=== PATIENT | female | born 1990 | race Caucasian/White ===

== ENCOUNTER 2016-04-14 10:07 | Emergency (ER) | payer BC ==
[2016-04-14] MEDS ORDERED: Ibuprofen TAB* 600 MG PO ONE (11:23)
--- NOTE | 2016-04-14 11:28 | UC ---
Knee Pain HPI - HPI Summary HPI Summary: patient was playing soccer, planted right foot, heard a "pop" and knee gave out. - History of Current Complaint Chief Complaint: UCLowerExtremity Stated Complaint: RIGHT KNEE INJURY Time Seen by Provider: 04/14/16 11:18 Hx Obtained From: Patient ?: No Onset/Duration: Sudden Onset, Lasting Days - 1 Severity Initially: Severe Severity Currently: Moderate Character: Dull, Stiffness Aggravating Factor(s): Movement, Weight Bearing, Prolonged Standing, Stairs Alleviating Factor(s): Rest Associated Signs And Symptoms: Positive: Swelling, Weakness Able to Bear Weight: Yes - Risk Factors Septic Arthritis Risk Factor: Negative Gout Risk Factor: Negative - Allergies/Home Medications Allergies/Adverse Reactions: Allergies Allergy/AdvReac Type Severity Reaction Status Date / Time No Known Allergies Allergy Verified 04/14/16 11:15 Home Medications: Home Medications Ibuprofen [Ibuprofen 200 MG] 800 mg PO PRN 04/14/16 [History] PMH/Surg Hx/FS Hx/Imm Hx Previously Healthy: Yes - Surgical History Surgical History: None - Family History Known Family History: Negative: Cardiac Disease, Hypertension - Social History Alcohol Use: Occasionally Substance Use Type: None Smoking Status (MU): Never Smoked Tobacco Review of Systems Constitutional: Negative Skin: Negative Eyes: Negative ENT: Negative Respiratory: Negative Cardiovascular: Negative Gastrointestinal: Negative Genitourinary: Negative Motor: Negative Neurovascular: Negative Musculoskeletal: Arthralgia, Decreased ROM - right knee, Edema, Myalgia Neurological: Negative Psychological: Negative All Other Systems Reviewed And Are Negative: Yes Physical Exam Triage Information Reviewed: Yes Appearance: Well-Appearing, Well-Nourished, Pain Distress Vital Signs: Initial Vital Signs Temp 99.5 F 04/14/16 11:09 Pulse 79 04/14/16 11:09 Resp 14 04/14/16 11:09 BP 120/74 04/14/16 11:09 Pulse Ox 100 04/14/16 11:09 Vital Signs Reviewed: Yes Eye Exam: Normal Eyes: Positive: Conjunctiva Clear ENT Exam: Normal ENT: Positive: Normal ENT inspection, Hearing grossly normal, Pharynx normal, TMs normal Dental Exam: Normal Neck exam: Normal Neck: Positive: Supple, Nontender, No Lymphadenopathy Respiratory Exam: Normal Respiratory: Positive: Chest non-tender, Lungs clear, Normal breath sounds Cardiovascular Exam: Normal Cardiovascular: Positive: RRR, No Murmur, Pulses Normal Abdominal Exam: Normal Abdomen Description: Positive: Nontender, No Organomegaly, Soft, Guarding Bowel Sounds: Positive: Present Musculoskeletal: Positive: Strength Limited @ - in right leg, knee feels weak, ROM Limited @ - flx and ext due to pain and swelling, Edema @ - edema is above the knee, in the quadricep, neg ericka, Neurological Exam: Normal Neurological: Positive: Alert, Muscle Tone Normal Psychological Exam: Normal Skin Exam: Normal - no bruising noted Knee Pain Course/Dx - Course Course Of Treatment: hx obtained, exam performed, knee xray, ibuprofen given. knee immobilizer juan wrap and crutches supplied, referred to ortho for follow up - Differential Dx/Diagnosis Differential Diagnosis/HQI/PQRI: Bursitis, Contusion, Dislocation, Fracture ( Closed), Patellofemoral Syndrome, Sprain, Strain Provider Diagnoses: knee effusion. decreased ROM. muscle strain of right quadricep Discharge - Discharge Plan Condition: Stable Disposition: HOME Patient Education Materials: Swollen Knee Joint (ED) Referrals: Frandy De MD [Primary Care Provider] - Bert Harp MD [Medical Doctor] - Additional Instructions: Your xray shows swelling inside the joint. Wear the immobilizer and use the juan wrap to reduce swelling, elevate at rest and ice as tolerated for the next 48 hours, then heat. Work through pain free range of motion a few times a day. I recommend follow up with an orthopedic for further evaluation and treatment. Use the crutches to aid in ambulation.
[2016-04-14 11:46] VITALS: BP 120/74
--- NOTE | 2016-04-14 11:52 | RAD ---
INDICATION: Right knee injury. TECHNIQUE: 4 views of the right knee were obtained. FINDINGS: The bones are normal alignment. There is a moderate joint effusion present. No fracture is seen. Joint spaces appear maintained. IMPRESSION: JOINT EFFUSION, NO FRACTURE IS SEEN.
== END 2016-04-14 12:24 | disposition home or self-care (01) ==
LOC: EDSEX → MERGE 10:07 → UCCORT 10:07
DX: S76.111A Strain of right quadriceps muscle, fascia and tendon, initial encounter (principal); X58.XXXA Exposure to other specified factors, initial encounter; Y93.66 Activity, soccer; Y92.9 Unspecified place or not applicable; M25.461 Effusion, right knee
CPT/HCPCS: 99203; A9270-GY; G0463

== ENCOUNTER 2016-05-26 06:34 | Day surgery (SDC) | payer BC ==
--- NOTE | 2016-05-07 09:33 | HP ---
PREOPERATIVE HISTORY AND PHYSICAL: DATE OF SURGERY: 05/26/16 [facility] PROCEDURE: Right knee arthroscopic anterior cruciate ligament reconstruction. CHIEF COMPLAINT: Right knee pain. HISTORY OF PRESENT ILLNESS: Mohit is a 25-year-old male who presents to the clinic. He was referred by Dr. Harp for right knee pain and instability. He states he was playing soccer 3 weeks ago when he was planted on the right knee and another player ran into him, he felt immediate pop and pain and swelling into his knee. He now has pain in the anterior aspect of his knee that is worse with walking and with stairs. He has minimal pain at rest. He rates his pain as a 2/10. He also reports instability of the knee. He denies locking or catching. He is taking ibuprofen as needed for the pain. He reports no prior injury to the knee. Dr. Harp ordered an MRI that revealed an ACL tear. He denies numbness and tingling. The patient has failed conservative measures and has therefore agreed to undergo a right knee arthroscopic anterior cruciate ligament reconstruction with Dr. Ervin on 05/26/16. PAST MEDICAL HISTORY: None. PAST SURGICAL HISTORY: None. MEDICATIONS: Ibuprofen 600 mg by mouth every 8 hours as needed for pain. ALLERGIES: No known drug allergies. FAMILY HISTORY: He denies pertinent family history. SOCIAL HISTORY: He lives with his parents. 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 He denies tobacco use. He reports occasional alcohol consumption. REVIEW OF SYSTEMS: A 14-point review of systems was reviewed with the patient and found to be positive for the current complaint, otherwise negative. He denies chest pain, shortness of breath, history of bleeding disorder, history of DVT or PE. PHYSICAL EXAMINATION GENERAL: Well-developed, well-nourished 25-year-old male in no acute distress. Alert and oriented x3. Appropriate mood and affect. VITALS: Height 69.75, weight 157. Pulse 60, blood pressure 124/86, respiratory rate 15. BMI 22.7. HEENT: Normocephalic, atraumatic. PERRLA. Throat clear. NECK: Supple. PULMONARY: Lungs clear to auscultation bilaterally. No wheezing, rhonchi, or rales. CARDIO: Regular rate and rhythm. S1, S2. No murmurs, gallops, or rubs. No edema. ABDOMEN: Positive bowel sounds. Soft, nontender. MUSCULOSKELETAL: Right lower extremity, antalgic gait favoring the right side. Mild varus deformity of the bilateral legs. Moderate effusion of the knee, nontender to palpation. 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 Range of motion from 1 to 100 degrees. Stable MCL and LCL. +2A Sai. Calves soft, nontender. +2 dorsalis pedis pulse. Sensation intact to light touch distally. Left lower extremity, skin is intact. No effusion. Range of motion from 0 to 130 degrees. Venice-Schlatter deformity of the tibial tubercle. Stable MCL and LCL. Stable Sai. Negative posterior drawer. Calves soft, nontender. +2 dorsalis pedis pulse. Sensation intact to light touch distally. NEURO: Alert and oriented x3. Cranial nerves grossly intact. Sensation intact to light touch. DIAGNOSTIC STUDIES/LAB DATA: MRI of the right knee revealed evidence of an ACL tear with a bone bruising pattern consistent with the tear. IMPRESSION: Right knee ACL tear. PLAN: Nonoperative versus operative treatment and graft options were discussed thoroughly with the patient. He understands he has an increased risk of arthritis due to his ACL tear. He also understands the risk of surgery and that was explained to the patient the risk of surgery to include numbness, injury to blood vessels, nerves and surrounding structure, arthritis, graft failure, need for future surgery, stiffness, risk of anesthesia, and risk of blood clot. The patient understands this and would like to undergo surgery. Before surgery, he should use NSAIDs, ice, some Motrin, and Jose Cruz wraps for pain. He is scheduled to undergo a right knee arthroscopic anterior cruciate ligament reconstruction with Dr. Ervin on 05/26/16 and he will return to the office 7 days postoperatively for followup and suture removal. Percocet will be used postoperatively for pain management. CHRIS KELLER [id number]/[facility] #: [id number] MTDD
[~2016-05-26 06:34] MED LIST: Buffered Lidocaine 1% SYRIN* 3 ML/SYR SYRINGE INTRADERM ONE; Dexamethasone IV* 4 MG/ML 1 ML (4 MG) IV SLOW PU ONE; Dexamethasone IV* 4 MG/ML 1 ML (4 MG) ONE; Famotidine IV* 10 MG/ML 2 ML (20 mg) IV ONE; Famotidine IV* 10 MG/ML 2 ML (20 mg) ONE
[2016-05-26] MEDS ORDERED: ceFAZolin 2 GM PREMIX(*) 2 GM/50 ML BAG IVPB ONE (06:42)
[2016-05-26] MEDS ORDERED: Bupivacaine 0.25% EPI 200,000* 30 ML SDV ONE (06:52)
[2016-05-26] MEDS ORDERED: Bupivacaine 0.25% SDV* 30 ML ONE (06:52)
[2016-05-26] MEDS ORDERED: Scopolamine 1.5 mg* PATCH TRANSDERM PRN (07:26)
[2016-05-26] MEDS ORDERED: oxyCODONE/Acetamin 5/325 MG* TAB PO PRN (07:26)
[2016-05-26] MEDS ORDERED: DiMENhydriNATE IV* 50 MG/ML VIAL IV PUSH PRN (07:26)
[2016-05-26] MEDS ORDERED: fentaNYL* 50 MCG/ML 2 ML VIAL (100 MCG VIAL) IV PRN (07:26)
[2016-05-26] MEDS ORDERED: Ondansetron INJ* 2 MG/ML VIAL IV PRN (07:26)
[2016-05-26] MEDS ORDERED: HYDROmorphone* 1 MG/ML 1 ML SYR IV PRN (07:26)
[2016-05-26] MEDS ORDERED: fentaNYL* 50 MCG/ML 5 ML VIAL (250 MCG VIAL) ONE (07:30)
[2016-05-26] MEDS ORDERED: Midazolam* 1 MG/ML 5 ML VIAL (5 MG) ONE (07:30)
[2016-05-26] MEDS ORDERED: Ketorolac INJ* 30 MG/ML 1 ML VIAL ONE (07:31)
[2016-05-26] MEDS ORDERED: Ondansetron INJ* 2 MG/ML VIAL ONE (07:31)
[2016-05-26] MEDS ORDERED: Lidocaine 2% PF* 5 ML VIAL ONE (07:31)
[2016-05-26] MEDS ORDERED: Propofol* 10 MG/ML 20 ML BTL IV PUSH ONE (07:31)
[2016-05-26] MEDS ORDERED: Atracurium* 10 MG/ML 10 ML VIAL ONE (07:40)
[2016-05-26] MEDS ORDERED: Glycopyrrolate IV* 0.2 MG/ML 1 ML VIAL ONE (07:51)
[2016-05-26 11:21] VITALS: BP 118/72
--- NOTE | 2016-05-27 02:20 | OP ---
OPERATIVE REPORT: DATE OF OPERATION: 05/26/16 - EMMIE DATE OF : 89 SURGEON: Jp Ervin MD DATA MANAGEMENT MANAGER: CHRIS Hill An speech assistant was needed for the entirety of the case to help with positioning, retraction, was utilized throughout all portion of the case. ANESTHESIOLOGIST: Dr. Barron. ANESTHESIA: General. PRE-OP DIAGNOSIS: Right knee anterior cruciate ligament, grade 3 anterior cruciate ligament injury. POST-OP DIAGNOSIS: Right knee grade 3 anterior cruciate ligament injury with lateral meniscal tear as well as medial femoral condyle abrasion. OPERATIVE PROCEDURE: Right knee arthroscopy with ACL reconstruction using quad autograft and partial lateral meniscectomy. INDICATIONS: None. TOURNIQUET TIME: 33 minutes and 250 mmHg. COMPLICATIONS: None. ESTIMATED BLOOD LOSS: Less than 25. IMPLANTS USED: One 7 x 25 mm SoftSilk screw and one 10 x 25 mm Biocomposite screw. INDICATIONS: Mohit Villela is a 25-year-old male who was playing soccer about 6 weeks ago and he sustained injury to his knee. He was diagnosed with an ACL injury and has elected to proceed with operative management. The risks and benefits were reviewed and include but are not limited to bleeding, infection, damage to nerves, vessels, surrounding structures, wound not healing, persistent pain, need for further surgery, risk of arthritis, risk of retear, stiffness, persistent pain, incomplete relief of symptoms, risk of DVT, risk of anesthesia. He has elected to proceed. DESCRIPTION OF PROCEDURE: The patient was greeted in the preoperative area by the attending surgeon. Correct extremity was marked and consent was confirmed. The patient was brought back to the operating suite where he was placed in a supine position on the operating table. He then underwent general anesthesia and endotracheal intubation after which examination of the knee was done. He was found to have a range of motion from 1 to about 135 degrees, stable to varus and valgus stress at 0 and 30 degrees, 2B Sai, negative posterior drawer. No effusion. The lateral post was positioned, a small 10-pound bump was placed at the foot to allow for the foot to rest at 90 degrees. The right leg after a miniature surgical pause was intra-articularly injected with 0.25% Marcaine with epi 30 cc. The right leg was then prepped and draped in the usual sterile fashion beginning with chlorhexidine soap, scrub, and alcohol wipe and a final prep with ChloraPrep. After appropriate surgical pause indicating site, side, procedure, administration of antibiotics, a sterile tourniquet was placed on the thigh proximally. The limb was exsanguinated and the tourniquet inflated to 250 mmHg. After the tourniquet was inflated, a 10 blade was used to make an incision in line with the distal quad. Soft tissues were carefully dissected to expose the paratenon and the quad. This was carefully debrided using Metzenbaum scissors. Once the quad was exposed and centered 10 mm were then marked out and then the 10 blade was used to harvest the graft. Care was taken to harvest distally where the bone block was harvested in a routine fashion by using first electrocautery device to radha it out, then the sagittal saw blade for the cuts. The small drill hole was then used to drill two drills in the bone block. The bone block was harvested, the drill holes were drilled. The graft was then amputated proximally with approximately 7.5 mm versus 10 length. The bone block was found to be about 23 mm in length. The graft was then prepared in the back table by the attending surgeon. Meanwhile, the speech assistant was closing the quadriceps tendon with 0 Vicryl in interrupted fashion. The bone blocks were found to be size 9 x 23 mm and the soft tissue portion was about 10 mm in diameter. Whipstitches were placed through both ends of the graft as well. The graft was left on tension on the back table. The 11 blade was then used to make a anterolateral portal. The scope was positioned in the suprapatellar pouch. The undersurface of the patella was examined and found to have no evidence of chondral injury. The patella had grade 0 changes. The trochlea had grade 0 changes. The medial and lateral gutters were intact but had evidence of hemosiderin deposits. The medial compartment at the very edge of the medial femoral condyle had evidence of abrasion and erythema indicating a significant injury which is likely where the present bone bruise is, but no unstable flaps. The knee was scoped and then positioned in the notch. There was abundant fat pad present as well as a large tear of the ACL. The ACL appeared to have scarred back to the PCL. One small fiber was left intact. The anterior medial portal was then made under needle localization. The shaver was used to debride the fat pad and the soft tissue anteriorly. The scope was then positioned in the medial compartment. The medial compartment was examined. There were grade 0 to 1 changes. The medial meniscus was intact and probed. The knee was then placed in a [id number] position. Lateral compartment had grade 0 to 1 changes. Lateral tibial plateau had grade 0 changes. The lateral meniscus had evidence of tearing that involved the root. However, it appeared to have healed back but there was unstable flap. The biter and shaver were used to debride back the unstable flap but the remainder of the meniscus was preserved. There was a mild amount of fraying on the body of the meniscus too that was debrided back. Once the meniscectomy was completed, attention was directed to the notch. The knee was placed in 90 degrees. The biter, saw and the electrocautery device were then used. The notch was found to be somewhat narrow posteriorly. Therefore, a small notchplasty was done using the arthroscopic sangeeta. All excess bone and debris were removed. Once this was done, the awl was used to radha the possible position of the ACL. This was then checked by changing the portals in the medial lateral portal. After this was done, the tibial guide was then placed in the center of the tibia. A separate incision was then made for the tibial tunnel using a 15 blade. Soft tissues were carefully dissected to expose the bone. The guide was then placed appropriately and the guide pin was then drilled to the center of the footprint. Once the appropriate position was identified, this was then overdrilled with a size 10 mm full bore reamer. The excess bone was collected for bone graft for the patellar defect. The tunnel was then rasped and prepared. Images were taken to ensure that there was a full thickness tunnel. There was no evidence of fracture or any loose tissue. Once the tunnel was prepared, the knee was then gently placed in hyperextension with a Arora and Nephew straight guide arm. With the knee in hyperflexion, the Beath pin was then drilled through the center of the femoral footprint out through the lateral cortex into the skin and was found to be in appropriate position. Scope portals were then changed from the lateral to the medial portal to make sure also that there was extra back wall and that the position was not inappropriate. The size 9 mm low profile reamer was then drilled to a depth of about 24 mm. All excess bone and debris were removed. The tunnel was visualized and found to have good back wall. All excess bone and debris were removed. The tunnel was then notched after which a #2 Ti-Cron suture was placed through the islet end of the Beath pin and passed through the lateral aspect of the leg and then in an anterograde fashion into the tibial tunnel. At this point, the graft was brought back to the operating table and carefully was placed under direct arthroscopic visualization. Once the femoral bone block was well seated, a 9-0 wire was placed in the femoral tunnel where the previous notch was made and a size 7 x 25 mm SoftSilk screw was placed with excellent purchase, after which the knee was taken through full extension and pictures of the graft were obtained. The knee was found to not be impinged and was allowed to fully extend. The leg was then cycled approximately 15 times with no loosening or evidence of displacement of the graft. The scope was placed back to the joint to confirm this and images were obtained. At this point , the knee was then placed in gentle flexion of about 20 degrees of flexion with tension on the tibial sutures and posterior drawer. A size 10 x 25 mm Biocomposite screw was used to secure the soft tissue graft to the tunnel. This was found to have a good bite. The knee was placed in extension and then a Sai was checked and it was found to be stable. The knee was taken to a full range of motion and again found to be stable. The scope was positioned back into the knee and the graft was visualized and found to have no displacement or alteration. Final images were obtained of the knee as well as all incisions were copiously irrigated with sterile saline. The excess bone graft was placed in the tibial graft. This was oversewn with 0 Vicryl. The subcutaneous tissues were closed with 2-0 Vicryl at the quadriceps as well as tibial wound. The skin was closed with mary kay. The portals were closed with 3 -0 nylon and the tibial wound was closed with 3-0 Monocryl. Sterile dressings were applied. The wound was injected with 30 cc of 0.25% Marcaine plain. A Cryo/Cuff as well as a hinged knee was then applied, locked in extension. The patient was then awoken from anesthesia and transferred to PACU in stable condition. POSTOPERATIVE PLAN: He will be weightbearing as tolerated. He will be walking with the brace locked in extension for 4 weeks. He will be allowed to work on range of motion beginning on with physical therapy. I will see the patient back in approximately 8 days. He will be discharged on pain medications as well as antibiotics. DVT prophylaxis was considered but deferred due to no previous personal or family history. CC: Dr. Frandy De* [id number]/[facility] #: [id number]
[2016-05-29] MEDS ORDERED: Scopolomine PATCH Remove* 1 NOTE MISC PATCH OFF ONE (07:27)
== END 2016-05-26 11:15 | disposition home or self-care (01) ==
LOC: OREAST 06:34 → MERGE 06:34 → OREAST 11:15
PROVIDERS: ATTEND Orthopaedic Surgery
DX: S83.511A Sprain of anterior cruciate ligament of right knee, initial encounter (principal); S83.281A Other tear of lateral meniscus, current injury, right knee, initial encounter; X50.0XXA Overexertion from strenuous movement or load, initial encounter; Y93.66 Activity, soccer; Y92.322 Soccer field as the place of occurrence of the external cause
CPT/HCPCS: C1713; J0690; J1100; J1885; J2250; J2405; J2704; J3010